=== PATIENT | male | born 2000 | race Caucasian/White ===

== ENCOUNTER 2021-10-15 15:53 | Emergency (ER) | payer SELFPAY ==
[2021-10-15 16:10] VITALS: BP 132/84; PULSE 72; RESP 16; TEMP 37.1; O2SAT 99
--- NOTE | 2021-10-15 17:40 | ED.URI ---
HPI - URI/Sore Throat General Chief Complaint: Upper Respiratory Infection Stated Complaint: sore throat Time Seen by Provider: 10/15/21 17:40 Source: patient, RN notes reviewed and old records reviewed Mode of arrival: ambulatory Limitations: no limitations History of Present Illness HPI Narrative: 21-year-old male who presents to [facility] accompanied by significant other with complaints of sore throat on the right side of his throat with painful swallowing for the past 2-3 days. Patient reports that he has had his tonsils removed but he has had strep since having them removed. Patient states that he has noted pus pockets to the right side of his throat and it is painful to swallow and his appetite is decreased. He reports that he has been taking Tylenol and Ibuprofen for his symptoms with no resolution. He reports that he had COVID 2 weeks ago. denies any recent known fevers chills or sweat or any cough. MD elicited complaint: sore throat Related Data Allergies Allergy/AdvReac Type Severity Reaction Status Date / Time No Known Allergies Allergy Unverified 10/10/17 16:48 Review of Systems Review of Systems: CONSTITUTIONAL: Denies acute fever, chills, or sweats. EYES: Denies visual changes, redness, or discharge. ENT: Positive for rhinorrhea, no acute feelings of congestion,positive for right sided sore throat, no otalgia. CARDIOVASCULAR: Denies chest pain, palpitations, or edema. RESPIRATORY: Denies cough or dyspnea. GASTROINTESTINAL: Denies abdominal pain, nausea, vomiting, or diarrhea.reports decreased appetite GENITOURINARY: Denies dysuria or hematuria. SKIN: Denies rash or itching. MUSCULOSKELETAL: Denies back pain, joint pain, or myalgia. NEUROLOGIC: Denies headache, numbness, or weakness. PSYCHIATRIC: Denies anxiety or depression. All systems reviewed & are unremarkable except as noted in HPI and below PMFSH Past Medical History Medical History (Updated 10/16/21 @ 10:18 by Funmi Sosa NP) COVID-19 Surgical History Surgical History (Updated 10/16/21 @ 10:14 by Funmi Sosa NP) History of tonsillectomy Social History Social History (Updated 10/16/21 @ 10:17 by Funmi Sosa NP) Smoking status: Never smoker Alcohol intake: current Alcohol use details: rare social Substance use: never Living arrangements: with family Gender identity (if verbalized by the patient): Male Comments At time of signature, agree with nursing past medical, surgical, social and family history. There is no relevant family history pertinent to the presenting complaint Exam Narrative: GENERAL: Well-appearing, well-nourished, and in no acute distress. HEAD: Normocephalic, atraumatic. EYES: PERRLA and EOMI. ENT: Nares with mild redness,clear rhinorrhea no epistaxis. Mucous membranes moist.TM's normal with good light reflex, throat is red to right side of throat with white pus packets noted, tonsils absent NECK: Supple.no lymphadenopathy CHEST: Clear to auscultation. No respiratory distress.no cough noted SAO2 99% on room air. HEART: Regular rate and rhythm. No murmur heard. Normal peripheral pulses. ABDOMEN: Soft, nontender, nondistended, normal active bowel sounds. EXTREMITIES: Normal range of motion. No edema. SKIN: Warm, dry, no rash. NEURO: No focal deficits. Alert and oriented x3. Course Course Level of Care: Express Care Visit Vital Signs Vital signs: Vital Signs Temperature 37.1 C 10/15/21 16:10 Pulse Rate 72 10/15/21 16:10 Respiratory Rate 16 10/15/21 16:10 Blood Pressure 132/84 10/15/21 16:10 Pulse Oximetry 99 10/15/21 16:10 Temperature 37.1 C 10/15/21 16:10 Pulse Rate 72 10/15/21 16:10 Respiratory Rate 16 10/15/21 16:10 Blood Pressure 132/84 10/15/21 16:10 Pulse Oximetry 99 10/15/21 16:10 MDM - URI/Sore Throat Differential Diagnosis Differential diagnosis: Likely upper respiratory infection, pharyngitis and other (exudative pharyngitis) Medical
== END 2021-10-15 18:02 | disposition home or self-care (01) ==
PROVIDERS: Emergency Provider Registered Nurse
DX: J02.9 Acute pharyngitis, unspecified (principal); Z86.16 Personal history of COVID-19
CPT/HCPCS: 87081; 87880; 99213; G0463

== ENCOUNTER 2023-05-13 11:18 | Emergency (ER) | payer SELFPAY ==
[2023-05-13 11:33] VITALS: BP 114/73; PULSE 60; RESP 16; TEMP 36.6; O2SAT 100
--- NOTE | 2023-05-13 11:38 | ED.EYEPROB ---
HPI - Eye Problem General Chief complaint: Eye Problems Stated complaint: Left Eye Irritation Time Seen by Provider: 05/13/23 11:35 Source: patient Mode of arrival: ambulatory Limitations: no limitations History of Present Illness HPI Narrative: Sampson is a 23-year-old male patient presenting to the clinic today with complaints of left eye itching, blurring, and watering is x2 days. He reports he is having some mild discomfort rates it a 2/10 currently. No recent exposure to anybody with pinkeye. Denies any known injury or foreign body in the left eye. Related Data Allergies Allergy/AdvReac Type Severity Reaction Status Date / Time No Known Allergies Allergy Verified 05/13/23 11:58 Review of Systems Review of Systems: Pertinent positives per HPI. Patient denies any fever, chills, rash, headache, dizziness, cough, runny nose, sore throat, shortness of breath, chest pain, palpitations, nausea, vomiting, diarrhea, constipation, abdominal pain, or any urinary issues. PMFSH Past Medical History Medical History COVID-19 Surgical History Surgical History History of tonsillectomy Social History Social History Smoking status: Never smoker Alcohol intake: current Alcohol use details: rare social Substance use: never Living arrangements: with family Gender identity (if verbalized by the patient): Male Comments At the time of my signature, I reviewed and agree with the nursing past medical, surgical, social, and family history. There is no relevant family history pertinent to the patient complaint. Exam Narrative: General: Well-developed, well nourished, in no apparent distress Head: Normocephalic, atraumatic Eyes: Pupils equally round and reactive to light bilaterally, EOM intact, right sclera and conjunctive clear, left sclera injected mildly and conjunctive is clear, no active discharge, lids normal, no visualized foreign body Ears: TMs intact and clear, ear canals clear, no drainage, grossly hearing normal. Nose: Nares patent, no discharge, no inflammation, no sinus tenderness. Mouth: Oropharynx without lesions or masses, good dentition, MMM. Neck: Supple, trachea midline, no enlargement of anterior or posterior cervical nodes, no thyroid masses or goiter palpable. Cardio: Regular rate and rhythm, s1 and s2 normal, no murmur appreciated. Resp: Clear to auscultation bilaterally anteriorly and posteriorly, no rhonchi, rales, wheezing or rubs Course Course Emergency Course: Portions of this record may have been created with voice recognition software. Level of Care: Express Care Visit Vital Signs Vital signs: Vital Signs Temperature 36.6 C 05/13/23 11:33 Pulse Rate 60 05/13/23 11:33 Respiratory Rate 16 05/13/23 11:33 Blood Pressure 114/73 05/13/23 11:33 Pulse Oximetry 100 05/13/23 11:33 Oxygen Delivery Room Air 05/13/23 11:33 Temperature 36.6 C 05/13/23 11:33 Pulse Rate 60 05/13/23 11:33 Respiratory Rate 16 05/13/23 11:33 Blood Pressure 114/73 05/13/23 11:33 Pulse Oximetry 100 05/13/23 11:33 Oxygen Delivery Room Air 05/13/23 11:33 Vital signs reviewed MDM - Eye Problem MDM Narrative Medical decision making narrative: At the time of visit patient is resting comfortably on the exam table. I suspect patient has eye irritation-likely due to allergies. Will send in prescription for azelastine eyedrops. Supportive measures were discussed with the patient he voiced understanding discharge instructions agrees to treatment plan. Differential Diagnosis Differential diagnosis: Likely corneal abrasion, conjunctivitis, periorbital cellulitis and other (Eye irritation) Discharge Plan Discharge Clinical Impression: Irritation of left eye Patient Disposition:
== END 2023-05-13 11:42 | disposition home or self-care (01) ==
PROVIDERS: Emergency Provider Nurse Practitioner Family
DX: H57.12 Ocular pain, left eye (principal); Z86.16 Personal history of COVID-19
CPT/HCPCS: 99213; G0463

== ENCOUNTER 2025-04-24 19:39 | Emergency (ER) | payer SELFPAY ==
--- NOTE | 2025-04-24 19:40 | ED_ITS ---
HPI - Dental/Oral General Chief complaint: Dental/Oral Stated complaint: Tooth Pain Time Seen by Provider: 04/24/25 19:40 Source: patient Mode of arrival: ambulatory Limitations: no limitations History of Present Illness HPI Narrative: Sampson is a 25-year-old male patient presenting to the clinic today with complaints of dental pain x2 days. He reports he is having pain to the left lower 1st molar. States he has a hole in that tooth and has recently had a dental abscess 2 months ago and took penicillin and that cleared up. Denies any fevers, chills, body aches. Feels as though the left lower jaw is starting to swell. Has not followed up with dentist Related Data Allergies Allergy/AdvReac Type Severity Reaction Status Date / Time No Known Allergies Allergy Verified 04/24/25 19:53 Review of Systems Review of Systems: Pertinent positives per HPI. Patient denies any fever, chills, rash, headache, visual changes, dizziness, cough, runny nose, sore throat, shortness of breath, chest pain, palpitations, nausea, vomiting, diarrhea, constipation, abdominal pain, or any urinary issues. PMFSH Past Medical History Medical History COVID-19 Surgical History Surgical History History of tonsillectomy Social History Social History Smoking status: Never smoker Alcohol intake: current Alcohol use details: rare social Substance use: never Living arrangements: with family Gender identity (if verbalized by the patient): Male Comments At the time of my signature, I reviewed and agree with the nursing past medical, surgical, social, and family history. There is no relevant family history pertinent to the patient complaint. Exam Narrative: General: Well-developed, well nourished, in no apparent distress Head: Normocephalic, atraumatic Eyes: Pupils equally round and reactive to light bilaterally, EOM intact, sclera and conjunctive clear, no discharge, lids normal Ears: TMs intact and clear, ear canals clear, no drainage, grossly hearing normal. Nose: Nares patent, no discharge, no inflammation, no sinus tenderness. Mouth: Oropharynx without lesions or masses, poor dentition, MMM. Mild swelling to left lower jaw without palpable abscess Neck: Supple, trachea midline, no enlargement of anterior or posterior cervical nodes, no thyroid masses or goiter palpable. Cardio: Regular rate and rhythm, s1 and s2 normal, no murmur appreciated. Resp: Clear to auscultation bilaterally anteriorly and posteriorly, no rhonchi, rales, wheezing or rubs Course Course Emergency Course: Portions of this record may have been created with voice recognition software. Level of Care: Express Care Visit Vital Signs Vital signs: Vital Signs Temperature 36.9 C 04/24/25 19:49 Pulse Rate 71 04/24/25 19:49 Respiratory Rate 20 04/24/25 19:49 Blood Pressure 129/84 04/24/25 19:49 Pulse Oximetry 100 04/24/25 19:49 Oxygen Delivery Room Air 04/24/25 19:49 Temperature 36.9 C 04/24/25 19:49 Pulse Rate 71 04/24/25 19:49 Respiratory Rate 20 04/24/25 19:49 Blood Pressure 129/84 04/24/25 19:49 Pulse Oximetry 100 04/24/25 19:49 Oxygen Delivery Room Air 04/24/25 19:49 Vital signs reviewed MDM - Dental/Oral MDM Narrative Medical decision making narrative: At the time of visit patient is resting comfortably on the exam table. Patient appears to be nontoxic. Complaints of dental pain x2 days. He reports he is having pain to the left lower 1st molar. States he has a hole in that tooth and has recently had a dental abscess 2 months ago and took penicillin and that cleared up. Denies any fevers, chills, body aches. Feels as though the left lower jaw is starting to swell. Has not followed up with dentist. Has been doing ibuprofen for pain. Rates pain 06/25 Plan: I suspect patient has dental pain/infection. Prescription for clindamycin was sent to the pharmacy. Supportive measures were discussed with the patient and they voiced understanding discharge instructions and agrees to treatment plan. Return precautions reviewed Differential Diagnosis Differential diagnosis: Likely gingival abscess, dental caries, toothache, dental abscess, fracture of tooth and aphthous ulcer Discharge Plan Discharge Clinical Impression: Toothache Patient Disposition: Home Condition: Stable Instructions: Antibiotic Form, Toothache (ED) Additional Instructions: Take medications as prescribed-clindamycin Increase fluids and stay well hydrated May take Tylenol/Motrin as needed for pain or fever May apply Orajel to the affected area to help alleviate pain May apply warm or cool compress to the affected area to help alleviate pain Follow-up with your dentist as soon as possible Patient Language: Bulgarian Prescriptions: New clindamycin HCl [Cleocin HCl] 300 mg capsule 300 mg PO Q8H 10 Days Qty: 30 0RF Follow-up/Referrals: UNKNOWN,DOCTOR [Non-Staff] - Time of Disposition: 19:52 Quality NIHSS Nursing Documentation ED NIHSS nursing documentation: reviewed/agree
--- OUTSIDE RECORDS SUMMARY | 2025-04-24 19:41 | XMS_ITS | Clinical Summary ---
Author Organization [facility] Address [address] [place] [address] Care Team Providers Care Hand Crown Pouncer Name Role Phone Unavailable Primary Care Provider Unavailabl e Source Comments [facility],non-owned Affiliates and Associated Physician Practices is amultiple site organization consisting of ambulatory clinics and hospital sitesin [place], [place], [place] and [place]. This disclosure is being madepursuant to the Care Everywhere program and may not contain all information available regarding this patient. Last updated 18.[facility] Allergies No known active allergies Medications * Be aware that medications may not be up to date on this document. Alwaysverify current medications with the patient. budesonide-form oterol (SYMBICORT) 80-4.5 MCG/ACT inhaler Inhale 2 Puffs by mouth 2 times daily. 1 Inhaler 3 4 Active albuterol HFA (PROVENTIL;VENT TANNER;PROAIR) 108 (90 BASE) MCG/ACT inhaler Inhale 2 Puffs by mouth every 4 hours as needed for Wheezing or Cough. OK TO SUBSTITUTE ANY BRAND. 1 Inhaler 0 4 Active Active Problems Problem Noted Date Diagnosed Date BMI (body mass index), pediatric, 95-99% for age 0805/12/2013 Asthma, intermittent 05/14/2012 Immunizations Immunization Administration Dates Next Due INFLUENZA VACCINE, TRIV. (AF LURIA, FLUZONE TRIVALENT; 6MO+) (IIV3) 07/15/2012 DTaP VACCINE IM (6wk-6yrs) 07/14/2002,,1998,07/15,1998 FLU VACCINE TRI IIV3 SPLIT P F IM (FLUVIRIN) 05/12/2013 HEP A PEDS 2 DOSE 05/12/2013,05/11/2011 HEP B VACCINE, PED/ADOL 01/09/1999,1998, HIB BOOSTER 11/29/1999, 9,1998,05/13 Human Papilloma Virus Valerie valent Vaccine 07/15/2012,09/04/2011,05/11/2011 INFLUENZA A [id number] VACCINE 08/04/2009 INFLUENZA VACCINE 07/11/2005 Influenza Nasal 05/11/2011,08/14/2010 MENINGOCOCCAL ACWY (MCV4P) VAC IM 03/23/2016, MMR 07/14/2002,07/11/1999 POLIO IPV 1998,1998 POLIO OPV 07/14/2002,07/11/1999 PPD 01/30/2001,07/11/1999 TDAP (7yrs+) 02/09/2010 VARICELLA 09/04/2011,01/30/2001 Social History Tobacco Use Types Packs/Day Years Used Date Smoking Tobacco: Passive Smo ke Exposure - Never Smoker Alcohol Use Standard Drinks/Week Comments Not Asked 0 (1 standard drink = 0.6 oz pur e alcohol) Sex and Gender Information Value Date Recorded Sex Assigned at Not on file 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 Gender Identity Not on file Sexual Orientation Not on file Last Filed Vital Signs Vital Sign Reading Time Taken Comments Blood Pressure 108/58 05/12/2013 9:08 AM CDT Pulse 60 05/12/2013 9:08 AM CDT Temperature 36.9 C (98.4 F) 03/23/2016 11:05 AM CDT Respiratory Rate - - Oxygen Saturation 97% 05/14/2012 11:15 AM CDT Inhaled Oxygen Concentration - - Weight 87.4 kg (192 lb 9.6 oz) 05/12/2013 9:08 A M CDT Height 174 cm (5' 8.5) 05/12/2013 9:08 AM CDT Body Mass Index 28.86 05/12/2013 9:08 AM CDT Plan of Treatment Health Maintenance Due Date Last Done Comments HIV SCREENING 2013 HEPATITIS C SCREENING 03/06/2016 DTAP/TDAP/TD VACCINES (7 - Td or Tdap) 02/10/2020 02/09/2010, 07/14/2002, 11/29/1999, Additional history exists COVID-19 VACCINE (2023- season) 2024 DEPRESSION SCREENING 09/16/2024 INFLUENZA VACCINE (#1) 2025 3, 07/15/2012, 05/11/2011, Additional history exists ZOSTER VACCINE (1 of 2) 2048 HEPATITIS B VACCINE Completed 01/09/1999, 1998, 1998 HIB VACCINE Completed 11/29/1999, 02/1999, 1998, Additional history exists HPV VACCINE Completed 07/15/2012, 08/17, 05/11/2011 MENINGOCOCCAL GROUPS A/C/Y/W VACCINE Completed 03/23/2016, 02/09/2010 MENINGOCOCCAL (Group B) VACCINE SHARED DECISION-MAKING Aged Out No longer eligible based on patient's age to complete this topic PNEUMOCOCCAL VACCINE Aged Out No long er eligible based on patient's age to complete this topic Insurance Goal Zero griddig PLAN * Guarantor: SAMPSON RODRÍGUEZ Account Type Relation to Patient Date of Phone Billing Address Personal/Family 2000 BIG[address] RODR[address]GUEZ [address] [place] [id number]
--- OUTSIDE RECORDS SUMMARY | 2025-04-24 19:44 | XMS_ITS | Clinical Summary ---
Author Organization [facility] Address [address] [place] [address] Phone Care Team Providers Care Supervisor Pullet Farm Name Role Phone Unavailable Primary Care Provider Unavailabl e Social History Tobacco Use Types Packs/Day Years Used Date Smoking Tobacco: Never Assessed Sex and Gender Information Value Date Recorded Sex Assigned at Not on file Legal Sex Male 10:04 AM CDT Gender Identity Not on file Sexual Orientation Not on file Plan of Treatment Health Maintenance Due Date Last Done Comments Depression Screening 2010 HPV Vaccines (2 - Male 2-dose series) 01/13/2013 07/15/2012 DTaP/Tdap/Td Vaccines (7 - Td or Tdap) 02/10/2020 02/09/2010, 07/14/2002, 11/29/1999, Additional history exists COVID-19 Vaccine ( season) 2024 04/08/2021, 03/18/2021 Influenza Vaccine (#1) 2025 , 05/12/2013, 07/15/2012, Additional history exists Hepatitis B Vaccines Completed 01/09/1999, 1998, 1998 HIB Vaccines Completed 11/29/1999, 02/1999, 1998, Additional history exists IPV Vaccines Completed 07/14/2002, 06/17, 1998, Additional history exists MMR Vaccines Completed 07/14/2002, 07/11/1999 Varicella Vaccines Completed 09/04/2011, 01/30/2001 Hepatitis A Vaccines Completed 05/12/2013, 05/11/20 11 Meningococcal Vaccine (ACWY) Completed 03/23/2016 Meningococcal B Vaccine Aged Out No l onger eligible based on patient's age to complete this topic Pneumococcal Vaccines Aged Out No tia hudson eligible based on patient's age to complete this topic Rotavirus Vaccines Aged Out No longer eligible based on patient's age to complete this topic
--- OUTSIDE RECORDS SUMMARY | 2025-04-24 19:44 | XMS_ITS | Clinical Summary ---
Author Organization [facility] Address [address] [place] [address] Phone Care Team Providers Care Agriculture Inspector Name Role Phone Provider, None Primary Care Provider Unavailabl e Allergies Active Allergy Reactions Criticality Noted Date Comments Amoxicillin Unknown 01/13/2024 Medications No known medications Active Problems No known active problems Social History Tobacco Use Types Packs/Day Years Used Date Smoking Tobacco: Never Smokeless Tobacco: Never Tobacco Cessation:Counseling Given: Not Answered Sex and Gender Information Value Date Recorded Sex Assigned at Not on file Legal Sex Male 4:11 PM CDT Gender Identity Not on file Sexual Orientation Not on file Last Filed Vital Signs Vital Sign Reading Time Taken Comments Blood Pressure 119/73 01/02/2025 6:22 PM CDT Pulse 68 01/02/2025 6:22 PM CDT Temperature 36.8 C (98.2 F) 01/02/2025 6:22 PM CDT Respiratory Rate 16 01/02/2025 6:22 PM CDT Oxygen Saturation 97% 01/02/2025 6:22 PM CDT Inhaled Oxygen Concentration - - Weight 116.1 kg (256 lb) 01/02/2025 6:22 PM CDT Height 188 cm (6' 2) 01/02/2025 6:22 PM CDT Body Mass Index 32.87 01/02/2025 6:22 PM CDT Plan of Treatment Health Maintenance Due Date Last Done Comments Hepatitis C Virus (HCV) Screening 1998 Human Papillomavirus (HPV) Immunization (2 - Male 2-dose series) 01/13/2013 07/15/2012 SARS-COV-2 Immunization ( season) 2024 04/08/2021, 03/18/2021 Influenza Immunization (#1) 05/17/202506/16, 05/12/2013, 07/15/2012, Additional history exists Respiratory Syncytial Virus (RSV) Immunization (Adult) (1 - 1-dose 75+ series) 2073 Hepatitis B Immunization Completed 999, 1998, 1998 TdaP Immunization Completed 02/09/2010 Meningococcal Immunization (ACWY) Completed 03/23/2016 Pneumococcal Immunization Combined Aged Out No longer eligible based on patient's age to complete this topic Rotavirus Immunization Aged Out No lo nger eligible based on patient's age to complete this topic Care Teams Agriculture Inspector Relationship Specialty Start Date End Date Provider, None [place] PCP - General 01/13/24
[2025-04-24 19:49] VITALS: BP 129/84; PULSE 71; RESP 20; TEMP 36.9; O2SAT 100
== END 2025-04-24 19:56 | disposition home or self-care (01) ==
PROVIDERS: Emergency Provider Nurse Practitioner Family
DX: K08.89 Other specified disorders of teeth and supporting structures (principal); Z86.16 Personal history of COVID-19
CPT/HCPCS: 99213; G0463